=== PATIENT | female | born 1970 | race Caucasian/White ===

== ENCOUNTER 2017-02-06 23:37 | Emergency (ER) | payer OTHER ==
[2017-02-07] MEDS ORDERED: KETOROLAC 60 MG/2 ML VIAL IM ONE (00:03)
[2017-02-07] MEDS ORDERED: oxyCODONE/APAP 7.5/325 Tab 1 TAB TAB PO ONE (00:03)
[2017-02-07 00:11] LABS: BILIRUBIN,URINE NEGATIVE (NEG); COLOR,URINE YELLOW; GLUCOSE, URINE (UA) NEGATIVE (NEG); NITRATE,URINE NEGATIVE (NEG); OCCULT BLOOD,URINE Trace-intact (NEG); PROTEIN,URINE NEGATIVE (NEG); UROBILINOGEN,URINE 0.2 EU/dL (0.2)
[2017-02-07] MEDS ORDERED: LORazepam 2 MG/1 ML VIAL IM ONE (00:19)
[2017-02-07 00:21] LABS: CLARITY,URINE CLEAR (CLEAR)
[2017-02-07 00:24] LABS: AMPHETAMINE SCREEN NEGATIVE (NEG); CANNABINOID SCREEN,URINE NEGATIVE (NEG); COCAINE SCREEN NEGATIVE (NEG); METHADONE URINE SCREEN NEGATIVE (NEG); METHAMPHETAMINES SCREEN,URINE NEGATIVE (NEG); OPIATE SCREEN,URINE POSITIVE (NEG); RBC,URINE 0-3 /hpf; URINE SAMPLE TYPE CLEAN CATCH URINE; URINE SPECIFIC GRAVITY - MAN 1.005
[2017-02-07] MEDS ORDERED: oxyCODONE IR Tab 15 MG TAB PO SCH (00:45)
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
[2017-02-07 05:55] VITALS: RESP 18; TEMP 98.2
== END 2017-02-07 01:05 | disposition home or self-care (01) ==
LOC: ER 23:37
DX: M54.5 Low back pain (principal); M25.512 Pain in left shoulder
CPT/HCPCS: 80305; 81001; 81003; 96372; 99283; J1885; J2060